=== PATIENT | female | born 1990 | race African-American/Black ===

== ENCOUNTER 2017-05-14 21:18 | Emergency (ER) | payer MEDICAID ==
[~2017-05-14] VITALS: Ht 162.6 cm; Wt 65.5 kg
[2017-05-14 21:20] VITALS: Ht 162.6 cm; Wt 65.5 kg
--- NOTE | 2017-05-14 23:10 | ERD ---
ER Documentation Chief Complaint Date/Time DATE: 05/14/17 TIME: 23:07 Chief Complaint pelvic pain, spotting with dark brown vag discharges HPI This 26-year-old female presents to emergency department today with complaints of pelvic pain and cramps x 2 weeks, worse today. Patient reports that she has been intermittently spotting with blood and brown discharge since last week, denies n/v/d. Denies breast tenderness. Home negative x 6. Patient reports dysuria without urgency or frequency. ROS All systems reviewed and are negative except as per history of present illness. Allergies Allergies: Coded Allergies: No Known Allergy (Unverified , 05/14/17) Physical Exam Vitals Vital Signs Date Time Temp Pulse Resp B/P Pulse Ox O2 Delivery O2 Flow Rate FiO2 05/14/17 21:20 98.6 89 20 156/89 100 Vitals stable, triage notes reviewed Physical Exam Const: Well-appearing well-nourished no acute distress Head: Eyes: ENT: Normal External Ears, Nose and Mouth. Neck: Resp: Respirations even and unlabored no respiratory Cardio: Abd: Soft, pelvic tenderness, non distended. no CVA tenderness Skin: Back: Ext: Neur: Awake and alert Psych: Normal Mood and Affect Results 24 hrs Laboratory Tests Test 05/15/17 00:37 Bedside Urine pH (LAB) 6.0 Bedside Urine Protein (LAB) Negative Bedside Urine Glucose (UA) Negative Bedside Urine Ketones (LAB) Negative Bedside Urine Blood 3+ Bedside Urine Nitrite (LAB) Negative Bedside Urine Leukocyte Esterase (L 1+ Current Medications Medications (Trade) Dose Ordered Sig/Shweta Route PRN Reason Start Time Stop Time Status Last Admin Dose Admin Ibuprofen (Motrin) 400 mg ONCE ONCE PO 05/14/17 23:30 05/14/17 23:31 DC 05/15/17 00:22 Interpretation text Urinalysis positive for evidence of infection with leukocytosis and microscopic hematuria, U hCG is negative for evidence of . Procedures/MDM This pleasant 26-year-old female presents to emergency department today for abdominal cramping, intermittent spotting with blood and brown discharge with dysuria, late menstruation with 6 negative test. Patient is currently trying to get , denies nausea, vomiting, or breast tenderness. I have no clinical suspicion for bowel obstruction, pyelonephritis , gastroenteritis, bowel obstruction, or any acute gynecologic emergency. Patient treated in emergency department with ibuprofen, urinalysis positive for evidence of urinary tract infection with leukocytosis and hematuria. New hCG negative for evidence of . Plan to discharge patient home on Macrobid 1 tab p.o. twice daily 7 days, increase fluids, increase rest, return to emergency department if symptoms fail to improve as anticipated. Patient is stable with no new complaints during ER course, clinically there is no current evidence to suggest meningitis, sepsis, acute abdomen, acute coronary syndromes , pulmonary embolism or any other emergent condition appearing to require further evaluation or hospitalization. I feel the patient is stable for discharge at this time. I have discussed results, examination findings, the treatment plan with the patient and family present prior to discharge. Indications for emergent reevaluation, side effects of medication were also discussed. All questions were answered. Patient verbalizes understanding and agrees with plan of care. Departure Diagnosis: Primary Impression: Pelvic cramping Additional Impression: UTI (urinary tract infection) Urinary tract infection type: site unspecified Hematuria presence: with hematuria Qualified Code: N39.0 - Urinary tract infection with hematuria, site unspecified Condition: Good Patient Instructions: Understanding Urinary Tract Infections (UTIs) Additional Instructions: Thank you for for coming to [facility] for your care today. Please ask your nurse or provider if you have questions about your care today and do not leave until all your questions have been answered. Please use any medications given as directed and follow-up with your doctor (or the doctor you were referred to) in the next 2-3 days. If you do not have a primary care doctor you may follow up at the [facility] (listed below). You may also use motrin and tylenol as needed for fever and/or pain unless instructed otherwise by your provider or nurse. Indications for more urgent follow-up have been discussed, but you may return to the Emergency Department at ANY time for any worrisome or worsening symptoms. If you have abdominal pain, please know that no test or exam you received is perfect and you should follow up within 8 hours for continued pain. If you had any imaging studies today, such as an X-Ray or CT Scan, these studies will be reviewed later by a radiologist. You will be called if there are important findings that were not identified today, so make sure the contact information you provided at registration is correct. If you received any narcotic pain control medicine today, such as Vicodin, Morphine or Dilaudid, your coordination and judgment may be affected for a number of hours. Please do not drive or operate heavy machinery, and you may want someone to assist you at home. If you were given a prescription for narcotic medication, be aware that it is very addictive- use sparingly and only if necessary. RENEA BROWER May 14, 2017 23:07
[2017-05-14] MEDS ORDERED: IBUPROFEN 200 MG TAB PO ONE (23:30)
[2017-05-15 00:31] LABS: URINE BLOOD (Dip) POC 3+ (NEGATIVE)
[2017-05-15] MEDS ORDERED: NITR-58 PO (01:09)
[2017-05-15 01:18] VITALS: BP 139/79; PULSE 77; RESP 18; TEMP 98
== END 2017-05-15 01:19 | disposition home or self-care (01) ==
LOC: FTE 21:18
DX: R10.2 Pelvic and perineal pain (principal); N39.0 Urinary tract infection, site not specified
CPT/HCPCS: 81003; Z7502; 99283